=== PATIENT | female | born 1955 | race Caucasian/White ===

== ENCOUNTER 2017-06-12 08:25 | Emergency (ER) | payer OTHER ==
[2017-06-12 08:39] VITALS: BP 144/72; PULSE 68; RESP 18; TEMP 98.1; O2SAT 97
--- NOTE | 2017-06-12 08:49 | EDPHY ---
H & P Stated Complaint: SLipped/fell at work;sent for eval R breast/lat rib pain Time Seen by Provider: 06/12/17 08:41 HPI/ROS: CHIEF COMPLAINT: Right lateral breast pain post mechanical fall HISTORY OF PRESENT ILLNESS: 61-year-old female arrives via private vehicle complaining of acute right lateral breast pain after she sustained a mechanical slip and fall while at work. She works at [employer], was cleaning the floors, slipped on a wet floor this morning impacted her right lateral breast, mid axillary line. Complaining of reproducible pain with palpation deep inspiration. Denies: Dyspnea, head injury, midline C-spine pain comfortable paresthesia, weakness, numbness, syncopal episode, loss of consciousness. PRIMARY CARE PROVIDER:Worker's compensation REVIEW OF SYSTEMS: A ten point review of systems was performed and is negative with the exception of the items mentioned in the HPI PAST MEDICAL/SURGICAL HISTORY: no anticoagulant use, diabetes SOCIAL HISTORY: denies alcohol use at time of incident PHYSICAL EXAM 1) GENERAL: Well-developed, well-nourished, alert and oriented. Appears to be in no acute distress. Answering questions appropriately. 2) HEAD: Normocephalic, atraumatic 3) HEENT: Pupils equal, round, reactive to light bilaterally. Negative Horners. Nasopharynx, oropharynx, clear. No deformity or angulation of nose. No septal hematoma. No rhinorrhea. No oral trauma. Ears bilaterally with normal tympanic membranes. No hemotympanum. No fluid or blood in the external auditory canal. No raccoon eyes. No Eldridge sign. Teeth are normally aligned with no gross malocclusion, TMJ bilaterally nontender, facial bones nontender including the zygomatic arch, maxilla mandible. 4) NECK: No cervical collar is on. Posterior cervical spine is nontender, no stepoff, no effusion. Full range of motion which does not elicit any midline cervical spine pain, no posterior midline tenderness, no step-off. 5) LUNGS: Clear to auscultation bilaterally, no wheezes, no rhonchi, no retractions. No obvious signs of trauma. She is tender to palpation mid axillary line at the level of the nipple. No visible signs of trauma. No crepitus. No flaring, no grunting. Moving symmetrically. No crepitus. 6) HEART: [Regular rate and rhythm, 7) ABDOMEN: No guarding, no rebound, no focal tenderness, no peritoneal signs, no signs of trauma, no ecchymosis 8) MUSCULOSKELETAL: Moving all extremities, no focal areas of tenderness, no obvious trauma. 9) BACK: No midline vertebral tenderness, no fluctuance, no step-off, no obvious trauma, no visual or palpable abnormality. 10) SKIN: No laceration. No abrasion DIFFERENTIAL DIAGNOSIS: In no particular include but limited to fracture, contusion, pneumothorax - Personal History Current Tetanus Diphtheria and Acellular Pertussis (TDAP): Yes - Medical/Surgical History Hx Diabetes: Yes - Social History Smoking Status: Never smoked Constitutional: Initial Vital Signs Temperature (C) 36.7 C 06/12/17 08:30 Heart Rate 68 06/12/17 08:30 Respiratory Rate 18 06/12/17 08:30 Blood Pressure 144/72 H 06/12/17 08:30 O2 Sat (%) 97 06/12/17 08:30 Allergies/Adverse Reactions: No Known Allergies Allergy (Verified 06/12/17 08:35) Home Medications: Medication Instructions Recorded Insulin Lispro [humALOG LISPRO 100 0 unit SC 08/31/11 units/ml (RX)] Diabetic Pill 06/12/17 Hydrocodone/APAP 5/325 [Shumway 1 tab PO Q6 PRN #5 tab 06/12/17 5/325 (RX)] Ibuprofen [Motrin (*)] 800 mg PO Q6 #15 tab 06/12/17 Medical Decision Making - Diagnostics Imaging Results: Imaging Impressions Ribs w/Chest X-Ray 06/12/17 08:46 Impression: Minimally displaced right rib fractures are seen without pneumothorax. Images reviewed by myself ED Course/Re-evaluation: Patient was observed and re-evaluated with serial examinations. She remains breathing comfortably. She was given incentive spirometer, analgesia. Discussed her x-rays showing no pneumothorax. I think the patient can be discharged with usual and customary discharge precautions and instructions, follow up with work comp provider. She feels comfortable with this plan. I do not think that further diagnostic studies are indicated at this time. Care of patient under supervision of secondary supervising physician Dr Chase with whom I discussed case . Departure - Departure Disposition: Home, Routine, Self-Care Clinical Impression: Rib pain on right side Ribs, multiple fractures Qualifiers: Encounter type: initial encounter Fracture type: closed Laterality: right Qualified Code(s): S22.41XA - Multiple fractures of ribs, right side, initial encounter for closed fracture Condition: Good Instructions: Rib Contusion (ED), Rib Fracture (ED) Additional Instructions: Return to the ER if you develop new or worsening pain, if you develop shortness of breath or any other symptoms that concern Regrese al cuarto de emergencias si desarolla dolor nuevo o si dax empeora, si desarolla falta de la respiracion o cualquier otro sintoma que le preocupe. Referrals: Follow-up, with your work comp provider in 2 days [Other] - As per Instructions Prescriptions: Hydrocodone/APAP 5/325 [Shumway 5/325 (RX)] 1 tab PO Q6 PRN #5 tab PRN Reason: Pain, Severe Ibuprofen [Motrin (*)] 800 mg PO Q6 #15 tab
== END 2017-06-12 09:25 | disposition home or self-care (01) ==
DX: S22.41XA Multiple fractures of ribs, right side, initial encounter for closed fracture (principal); E11.9 Type 2 diabetes mellitus without complications; Z79.4 Long term (current) use of insulin; W01.0XXA Fall on same level from slipping, tripping and stumbling without subsequent striking against object, initial encounter; Y92.69 Other specified industrial and construction area as the place of occurrence of the external cause

== ENCOUNTER → 2017-11-10 | Outpatient (CLI) | payer OTHER | LOC: FIMAGING 15:53 | PROVIDERS: ATTEND Family Medicine | DX: Z12.31 Encounter for screening mammogram for malignant neoplasm of breast (principal) ==